=== PATIENT | male | born 1930 | race Caucasian/White ===

== ENCOUNTER → 2016-09-30 | Outpatient (REF) | payer MEDICARE, OTHER ==
[~2016-09-30] MED LIST: ACET-654 PO; ARIC10TA PO; ARIC5TAB PO; ARTI99.0 OU; ASPI81TA85 PO; AZIL1TAB PO; BIMA01SOL OU; BISA10SU4 PR; CARB25TA PO; CETI10TA PO; CIPR500T89 PO; CLAR1TAB2 PO; CRES20TA PO; FEXO180T58 PO; FINA5TAB2 PO; FLEEENE4 PR; FLOM5CAP PO; INDA125TA PO; ISOS30TA4 PO; JANU100T PO; LOSA100T36 PO; LOSA50TA20 PO; MACR100C3 PO; METF500T4 PO; MILKSUS PO; MULTCAP PO; MYCOSTATIN TOP; OMEP20CA3 PO; OMEP40CA2 PO; PEPT262S PO; PROC25SU24 PR; RANI150C PO; SENN-15 PO; SINE25TACR PO; TAMS0.4C2 PO; TYLE325T5 PO; VITA100072 PO; VITMTA PO; ZOFR4TAB3 PO
[2016-09-30 11:02] LABS: CREATININE FOR GFR 1.27 MG/DL (0.70-1.30); GLOMERULAR FILTRATION RATE 57.7 (>35); POTASSIUM SERUM 3.9 MEQ/L (3.5-5.1)
[2016-09-30 11:03] LABS: MEAN CORPUSCULAR HEMOGLOBIN 31.1 pg (27.0-33.0); MEAN CORPUSCULAR HGB CONC 34.1 g/dl (32.0-36.5); MEAN CORPUSCULAR VOLUME 91.2 fl (80.0-96.0); RED CELL DISTRIBUTION WIDTH 13.5 % (11.5-14.5); WHITE BLOOD COUNT 7.4 K/mm3 (4.0-10.0)
== END ==
PROVIDERS: ATTEND Internal Medicine
DX: I10 Essential (primary) hypertension (principal)

== ENCOUNTER → 2016-10-13 | Outpatient (REF) | payer MEDICARE, OTHER ==
[2016-10-13 12:54] LABS: ALBUMIN 3.7 GM/DL (3.2-5.2); ALBUMIN/GLOBULIN RATIO 1.32 (1.00-1.93); BILIRUBIN,DIRECT 0.2 MG/DL (0.0-0.2); BILIRUBIN,TOTAL 0.6 MG/DL (0.2-1.0); TOTAL PROTEIN 6.5 GM/DL (6.4-8.2)
== END ==
PROVIDERS: ATTEND Internal Medicine
DX: F03.90 Unspecified dementia, unspecified severity, without behavioral disturbance, psychotic disturbance, mood disturbance, and anxiety (principal)

== ENCOUNTER → 2016-10-28 | Outpatient (REF) | payer MEDICARE, OTHER | PROVIDERS: ATTEND Internal Medicine | DX: Z51.81 Encounter for therapeutic drug level monitoring (principal); Z79.899 Other long term (current) drug therapy ==

== ENCOUNTER → 2016-11-24 | Outpatient (REF) | payer MEDICARE, OTHER ==
[2016-11-24 10:23] LABS: ALBUMIN 3.6 GM/DL (3.2-5.2); ALBUMIN/GLOBULIN RATIO 1.29 (1.00-1.93); BILIRUBIN,DIRECT 0.2 MG/DL (0.0-0.2); BILIRUBIN,TOTAL 0.6 MG/DL (0.2-1.0); TOTAL PROTEIN 6.4 GM/DL (6.4-8.2)
== END ==
PROVIDERS: ATTEND Internal Medicine
DX: F03.91 Unspecified dementia, unspecified severity, with behavioral disturbance (principal)

== ENCOUNTER → 2016-12-01 | Outpatient (REF) | payer MEDICARE, OTHER | PROVIDERS: ATTEND Internal Medicine | DX: E11.9 Type 2 diabetes mellitus without complications (principal) ==

== ENCOUNTER → 2016-12-30 | Outpatient (REF) | payer MEDICARE, OTHER ==
[2016-12-30 11:10] LABS: MEAN CORPUSCULAR HEMOGLOBIN 31.1 pg (27.0-33.0); MEAN CORPUSCULAR HGB CONC 33.1 g/dl (32.0-36.5); MEAN CORPUSCULAR VOLUME 93.9 fl (80.0-96.0); RED CELL DISTRIBUTION WIDTH 13.3 % (11.5-14.5); WHITE BLOOD COUNT 5.4 K/mm3 (4.0-10.0)
[2016-12-30 11:25] LABS: ANION GAP 10 MEQ/L (8-16); BLOOD UREA NITROGEN 28 MG/DL (7-18); CALCIUM LEVEL 8.9 MG/DL (8.8-10.2); CARBON DIOXIDE LEVEL 25 MEQ/L (21-32); CHLORIDE LEVEL 106 MEQ/L (98-107); CREATININE FOR GFR 1.15 MG/DL (0.70-1.30); GLOMERULAR FILTRATION RATE > 60.0 (>35); GLUCOSE, FASTING 189 MG/DL (83-110); POTASSIUM SERUM 3.9 MEQ/L (3.5-5.1); SODIUM LEVEL 141 MEQ/L (136-145)
== END ==
PROVIDERS: ATTEND Internal Medicine
DX: I10 Essential (primary) hypertension (principal)

== ENCOUNTER → 2017-01-12 | Outpatient (REF) | payer MEDICARE, OTHER ==
[2017-01-12 12:50] LABS: ALBUMIN 3.4 GM/DL (3.2-5.2); ALBUMIN/GLOBULIN RATIO 1.13 (1.00-1.93); BILIRUBIN,DIRECT 0.2 MG/DL (0.0-0.2); BILIRUBIN,TOTAL 0.7 MG/DL (0.2-1.0); TOTAL PROTEIN 6.4 GM/DL (6.4-8.2)
== END ==
PROVIDERS: ATTEND Internal Medicine
DX: G20 Parkinson's disease (principal)

== ENCOUNTER 2017-01-31 12:15 | Observation (INO) | payer MEDICARE, OTHER ==
[~2017-01-31] VITALS: Ht 177.8 cm; Wt 84.5 kg
[~2017-01-31 12:15] MED LIST changes: -AMOX500C PO; -ENEM1ENE4 PR; -GLUCLIQ7 PO; -ISOS60TA2 PO; -LORA-376 PO; -METF500T PO; -MIRA33504 PO; -NITR0.4D6 TD; -NITR4TASL SL; -ROCE1INJ4 IM; -SENO8.6T10 PO; -[UNRECOGNIZED DRUG - CODE] PO
[2017-01-31] MEDS ORDERED: methylPREDNISolone INJ 125 MG/2 ML VIAL (J2930) IV ONE (12:30)
[2017-01-31] MEDS ORDERED: FUROSEMIDE 40 MG/4 ML VIAL (J1940) IV ONE (12:30)
[2017-01-31 12:57] LABS: MEAN CORPUSCULAR HEMOGLOBIN 32.1 pg (27.0-33.0); MEAN CORPUSCULAR HGB CONC 33.4 g/dl (32.0-36.5); MEAN CORPUSCULAR VOLUME 96.2 fl (80.0-96.0); PLATELET COUNT, AUTOMATED 100 k/mm3 (150-450); RED CELL DISTRIBUTION WIDTH 13.4 % (11.5-14.5); WHITE BLOOD COUNT 23.4 K/mm3 (4.0-10.0)
[2017-01-31 12:58] LABS: ABG BASE EXCESS -8.9 (-2.0-2.0); ABG STANDARD HCO3 17.2 MEQ/L (22.0-26.0)
[2017-01-31 13:01] LABS: ABG HCO3 16.8 MEQ/L (22.0-26.0); ABG PARTIAL PRESSURE CO2 35.8 mmHg (35.0-45.0); ABG PARTIAL PRESSURE O2 54.4 mmHg (75.0-100.0); ABG TOTAL CO2 17.9 MEQ/L (23.0-31.0); ABG pH (ARTERIAL) 7.289 UNITS (7.350-7.450)
[2017-01-31] MEDS: IPRATROPIUM 0.5MG/ALBUTEROL 2.5MG INH SOL UD 3ML (DUONEB)(J7620) NEB PRN ×3 (13:06→13:37)
[2017-01-31 13:15] LABS: CALCIUM LEVEL 8.3 MG/DL (8.8-10.2); CREATININE FOR GFR 2.28 MG/DL (0.70-1.30); GLOMERULAR FILTRATION RATE 29.3 (>35)
--- NOTE | 2017-01-31 13:16 | REP ---
Clinical: Dyspnea and cough. Comparison: 07/03/2016. Findings: Mediastinum and cardiac silhouette are stable. Diffuse chronic interstitial changes are appreciated and subtle superimposed perihilar infiltrates cannot be excluded. No definite effusion. No pneumothorax. Skeletal structures demonstrate osteopenia and degenerative changes. A ventriculoperitoneal shunt identified. Impression: Chronic stable changes. Subtle superimposed perihilar opacities suggested. Signed by Ori Richardson MD 01/31/2017 01:09 P
[2017-01-31] MEDS ORDERED: ACETAMINOPHEN 650 MG SUPP PR ONE (13:30)
[2017-01-31] MEDS ORDERED: ROCE1INJ4 IM (13:34)
[2017-01-31] MEDS ORDERED: ISOS60TA2 PO (13:34)
[2017-01-31] MEDS ORDERED: METF500T PO (13:34)
[2017-01-31] MEDS ORDERED: LORA-376 PO (13:34)
[2017-01-31] MEDS ORDERED: NITR0.4D6 TD (13:34)
[2017-01-31] MEDS ORDERED: ASPI81TA85 PO (13:34)
[2017-01-31] MEDS ORDERED: [UNRECOGNIZED DRUG - CODE] PO (13:34)
[2017-01-31 13:42] LABS: BANDS 7 % (< 11); BASOPHILS 1 % (0-4)
[2017-01-31] MEDS ORDERED: CEFEPIME HCL 2 GM in D5W MINI-BAG PLUS 50 ML IV ONE (14:30)
[2017-01-31] MEDS ORDERED: NS 1,000 ML IV ONE ×2 (14:30→15:00)
[2017-01-31] MEDS ORDERED: DEXTROSE 50% 50 ML SYRINGE IV PRN (15:00)
[2017-01-31] MEDS ORDERED: GLUCAGON FOR INJ 1 MG VIAL (J1610) SC PRN (15:00)
[2017-01-31] MEDS ORDERED: GLUCOSE 4 GM CHEW TABLET PO PRN (15:00)
[2017-01-31] MEDS ORDERED: NS 1,000 ML IV SCH (15:15)
[2017-01-31] MEDS ORDERED: MIRA33504 PO (15:15)
[2017-01-31] MEDS ORDERED: BISACODYL 10 MG SUPP PR PRN (15:15)
[2017-01-31] MEDS ORDERED: CARB25TA PO (15:15)
[2017-01-31] MEDS ORDERED: ENEM1ENE4 PR (15:15)
[2017-01-31] MEDS ORDERED: TYLE325T5 PO (15:15)
[2017-01-31] MEDS ORDERED: GLUCLIQ7 PO (15:15)
[2017-01-31] MEDS ORDERED: SENO8.6T10 PO (15:15)
[2017-01-31] MEDS ORDERED: MEROPENEM INJ 1 GM in D5W MINI-BAG PLUS 100 ML IV ONE (15:15)
[2017-01-31] MEDS ORDERED: ONDANSETRON 4MG/2ML VIAL (J2405) IV PRN (15:15)
[2017-01-31] MEDS ORDERED: NITR4TASL SL (15:15)
[2017-01-31] MEDS ORDERED: AMOX500C PO (15:16)
--- NOTE | 2017-01-31 15:38 | PHACANCOPD ---
PHARMACY VANCOMYCIN DOSING Pt Demographics Demographics Patient Age:86 , Weight: , Gender: male Adjusted Body Weight Date: 01/31/17, Adjusted Body Weight: [na] Kg Events Past 24 Hours Events Past 24 Hours: YES: Change in CrCl, Fever, Elevation in WBC, NO: Dialysis, Diuretic Therapy, Pending Diagnostics, Pending Procedures, Other Vancomycin Vancomycin indication: sepsis Vancomycin Target Ranges: 15-20 mcg/ml Vancomycin Load Y/N: Yes Load Dose Date Time Vancomycin Load Dose: 1000mg Date: 01/31/17 Time: 17:00 Vancomycin Dose Date: 01/31/17. Current Vancomycin Dose: [1g IV q24h @08] Intermittent Dosing?: No Labs Labs Item Value Date Time White Blood Count 23.4 K/mm3 H 01/31/17 1243 Lactic Acid Level 7.8 MMOL/L *H 01/31/17 1300 Creatinine 2.28 MG/DL H # 01/31/17 1243 Creatinine 1.45 MG/DL H 01/31/17 0325 White Blood Count 15.0 K/mm3 H 01/31/17 0325 Vital Signs Label Value Date Time Patient Temperature 102.1 degrees F 01/31/17 1440 Temperature Source Rectal 01/31/17 1440 Micro Microbiology 01/31/17 Blood Culture, Received Pending 01/31/17 Blood Culture, Received Pending 01/31/17 Gram Stain, Received Pending 01/31/17 Sputum Culture, Received Pending Creatinine Clearance Date:01/31/17. Creatinine Clearance: [24 ml/min]. Pending Labs vanco trough scheduled 02/02 @07:00 Assessment and Plan Maintaining Current Dose?: Yes Reason for dose change: No Dose Change Pharmacist Note Pharmacist Note Date: 01/31/17. Pharmacist note: pt is a [facility] resident who has been admitted for sepsis. He has been started on meropenem and vancomycin. He is in acute renal failure, baseline SCr ~1.1 mg/dl. He has a Hx of MRSA UTI (BRIEN = 0.5 clean catch; 50,000 CFU). He was last on vancomycin here in 2016. Blood and sputum cultures are pending. I have started him on vancomycin 1g this afternoon followed by 1g IV q24h to start tomorrow morning. We will continue to monitor, I have a trough scheduled for Wednesday before the 3rd dose. Corky Valente Pharm.D. January 31, 2017 15:38
[2017-01-31] MEDS ORDERED: FLEET ENEMA PR PRN (15:45)
[2017-01-31] MEDS: MORPHINE SULF IN 0.9% NACL 100 MG in APPROPRIATE DILUENT 1 EA IV SCH ×2 (15:52)
[2017-01-31 16:12] VITALS: BP 82/46
--- NOTE | 2017-01-31 16:53 | HPE ---
DATE OF ADMISSION: 01/31/2017 PRIMARY CARE PROVIDER: Dr. Caraballo. CHIEF COMPLAINT: Hypotension, shortness of breath, and cough. HISTORY OF PRESENT ILLNESS: This is an 86-year-old male patient with underlying medical history of advanced Parkinson's. History is severely limited. Patient currently nonverbal in severe respiratory distress. Underlying medical history of severe dementia, advanced Parkinson's, normal-pressure hydrocephalus with ventriculoperitoneal (SUPERVISOR HOT DIP PLATING) shunt, type 2 diabetes, hypertension, coronary arterial disease, prostate cancer, previous subdural hematoma, tonsillectomy, heart valve replacement questionable, and urinary bladder cancer. As of yesterday, the patient was having trouble breathing at the [facility], was coughing, placed on oxygen, given Rocephin. This morning the patient's symptoms progressively worsening, was hypotensive, saturation in the 70s and 80s, subsequently brought to the emergency room. In the emergency room, the patient was hypotensive with blood pressure in the 70s, 75/50s ,with lactic acidosis, hypoxia requiring 100% nonrebreather with saturation of 92 and tachycardia. Given two liters of fluids. Given one dose of meropenem. Medical Orders for Life-Sustaining Treatment (MOLST) form was reviewed with the family. The patient is DO NOT RESUSCITATE/DO NOT INTUBATE (DNR/DNI). Likely cause of the current episode is septic shock due to pneumonia. The case was discussed with family, the daughter Darshana Santo, and also son Je, in extensive detail over the phone. Does not want triple-lumen central line. Given the patient's overall functioning status, the family has elected to make the patient COMFORT MEASURES ONLY. Subsequently, the patient was placed on morphine drip and admitted to the hospital for management of the patient's symptoms of pain and dyspnea. ALLERGIES: No known drug allergies. PAST MEDICAL HISTORY: 1. Severe dementia. 2. Parkinson's disease. 3. Type 2 diabetes. 4. Normal-pressure hydrocephalus. 5. Hypertension. 6. Coronary arterial disease. 7. Subdural hematoma. 8. Tonsillectomy. 9. History of valvular heart disease. PAST SURGICAL HISTORY: 1. Tonsillectomy. 2. SUPERVISOR HOT DIP PLATING shunt. 3. Heart valve replacement. 4. Bladder tumor removal. FAMILY HISTORY: Unable to obtain given the patient's mental status. SOCIAL HISTORY: From previous medical record, the patient does not smoke. Lives at a retirement. No alcohol abuse. No illicit drugs. DNR/DNI. Healthcare proxy is the daughter Darshana. REVIEW OF SYSTEMS: Unable to obtain. OUTPATIENT MEDICATIONS: - acetaminophen 650 mg by mouth every four hours as needed - amoxicillin 2000 mg by mouth - artificial tears four times a day - aspirin 81 mg by mouth daily - Lumigan eye drops at bedtime - Dulcolax rectal suppository 10 mg as needed daily - carbidopa levadopa 25/100 by mouth four times a day - Rocephin 1 gram intramuscular (IM) daily - vitamin B12 1000 mcg by mouth daily - Senokot-S two tablets by mouth twice a day - Enema as needed daily - finasteride 5 mg by mouth daily - Glucerna liquid by mouth daily - isosorbide mononitrate 60 mg by mouth daily - lorazepam 0.5 mg by mouth twice a day as needed - losartan 50 mg by mouth daily - metformin 500 mg by mouth every evening - milk of magnesia by mouth daily as needed - nitroglycerin sublingual 0.4 mg as needed - Nuplazid 34 mg by mouth every evening - MiraLax by mouth every evening - ranitidine 150 mg by mouth twice a day - Januvia 100 mg by mouth daily - Flomax 0.4 mg by mouth daily PHYSICAL EXAMINATION: VITAL SIGNS: Temperature 102.1, heart rate 100, blood pressure 87/43, pulse oximetry 97% on 100% nonrebreather. GENERAL: The patient tachypneic into 30s. Hypotensive. In significant respiratory distress. HEENT: Pale. Normocephalic, atraumatic. PULMONARY: Bilateral crackles, tachypneic. HEART: Regular tachycardia. Systolic murmur noticed 3/6. ABDOMEN: Soft, nontender. Hypoactive bowel sounds. EXTREMITIES: No edema bilateral lower extremities. Cool and clammy. NECK: No jugular venous distention (JVD). ELECTROCARDIOGRAM (EKG): Sinus tachycardia at 103. Left bundle branch block that is chronic. LABORATORY DATA: AB.28, 35.8, 54.4, 16.8. WBC 23.4, 14.7, 44.2, platelets 100. Chemistry: Sodium 137, potassium 5, chloride 103, bicarbonate 19, BUN 42, creatinine 2.28. Lactic acid 7.8. Troponin 0.77. BNP 1590. IMAGING: X-ray shows chronic changes with bi-hilar opacity. 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 1. Septic shock secondary to healthcare-acquired pneumonia. Initially given meropenem and two liters of intravenous (IV) fluid. 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 X-rays appreciated. Scopolamine. Ativan. Morphine. 2. Metabolic acidosis secondary to septic shock. Refer to above. 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 3. Hypoxic respiratory failure probably secondary to healthcare-acquired pneumonia, with also significant aspiration, possibly aspiration pneumonia as well. Patient currently nothing by mouth. Comfort measures only. Antibiotics initially given. Morphine for air hunger. Ativan for anxiety. 4. Type 2 diabetes. 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 5. Hypertension. Holding all blood pressure medications. Patient currently in septic shock. 6. Coronary arterial disease. The patient currently nothing by mouth with troponin elevation secondary to septic shock. 7. Parkinson's disease and severe dementia. Given the patient's mental status and severe aspiration risk, the patient is currently nothing by mouth, unable to take oral medications, and the patient is currently comfort measures only. Does not want tube feeding according to the MOLST form. 8. History of subdural hematoma and normal-pressure hydrocephalus. The patient currently comfort measures only. Will not pursue any further testing. 9. Type 2 diabetes. Patient currently nothing by mouth. 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 10. Severe dementia. Supportive care. 11. Deep venous thrombosis (DVT) prophylaxis. Venodyne sequential compression device. DISPOSITION: Patient currently comfort measures only. Admitted to the floor for symptom control, requiring morphine IV. ADVANCE CARE PLANNING TIME: About 40 minutes. Telephone conversation was held multiple times with patient's daughter and healthcare proxy, Darshana Santo, and also the patient's son who lives in [facility], and it was agreed that given the patient's multiple comorbidities and given patient does not want to be intubated and does not want any aggressive treatment, the patient will most likely benefit from comfort measures only and admitted to the hospital for further control of symptoms. MOLST form was done. Patient was made comfort measures only.
[2017-01-31] MEDS: PANTOPRAZOLE 40MG INJ (PROTONIX) (C9113) IV SCH (17:00)
[2017-01-31] MEDS ORDERED: VANCOMYCIN HCL 1,000 MG, VIAL MATE ADAPTER 1 EACH in D5W 250 ML IV ONE (17:00)
[2017-01-31] MEDS: SCOPOLAMINE 1.5 MG TRANSDERMAL TD PRN ×2 (17:28→17:32)
[2017-01-31] MEDS ORDERED: HumaLOG INSULIN (NovoLOG) PER UNIT SC SCH (18:00)
[2017-01-31] MEDS ORDERED: HEPARIN SOD (PORCINE) 5000 UNITS/ML VIAL SC SCH (22:00)
[2017-02-01] MEDS: NS 1,000 ML IV SCH (02:30)
[2017-02-01] MEDS ORDERED: MEROPENEM INJ 1 GM in D5W MINI-BAG PLUS 100 ML IV SCH (04:00)
[2017-02-01] MEDS ORDERED: VANCOMYCIN HCL 1,000 MG, VIAL MATE ADAPTER 1 EACH in D5W 250 ML IV SCH (08:00)
[2017-02-01] MEDS ORDERED: ASPIRIN 300 MG SUPP PR SCH (09:00)
[2017-02-01] MEDS: LORazepam 2 MG/ML VIAL (J2060) IV PRN ×3 (11:30→22:21)
--- NOTE | 2017-02-01 12:49 | IPNPDOC ---
Subjective Date Seen The patient was seen on 02/01/17. Subjective Chief Complaint/HPI The patient is a 86-year-old male admitted with a reason for visit of Fever/ Sob. Events since last encounter Patient comfortable, not taking po General: Reports: ROS Unobtainable Objective Physical Examination General Exam: Positive: No Acute Distress, Negative: Alert Assessment /Plan Problems (1) Septic shock Status: Acute Problem Text: Patient with septic shock most likely from health care associated pneumonia, advanced dementia correction resident Family pursuing comfort care based on patient's best known interests/intentions I discussed with family at bedside Patient appears comfortable On morphine drip unclear whether or not this can be adequately be handled in his previous living arrangement- as they sent him to ED (2) Parkinson's disease Status: Chronic (3) DNR (do not resuscitate) Status: Acute (4) DNI (do not intubate) Status: Acute (5) Parkinson's disease dementia Status: Chronic (6) Lactic acidosis Status: Chronic Plan/VTE VTE Prophylaxis Ordered?: No VTE Exclusion Mechanical Proph: Absent Response to Tx VTE Exclusion Pharmacological: At Low Risk for VTE Plan/Urinary Catheter Reason for insertion/continuin: Critical Pt monitoring VS, I&O, 24H, [facility] Vital Signs/I&O Vital Signs Date Time Temp Pulse Resp B/P (MAP) Pulse Ox O2 Delivery O2 Flow Rate FiO2 01/31/17 22:00 Non-Rebreather 15.0 01/31/17 16:12 101.3 86 28 82/46 (58) 95 I&O- Last 24 Hours up to 6 AM 02/01/17 06:00 Intake Total 2000 ml Output Total 0 ml Balance 2000 ml Laboratory Data 24H LABS Laboratory Tests 2 01/31/17 12:44: Blood Gas Bicarbonate Standard 17.2L, Arterial Blood pH 7.289L, Arterial Blood Partial Pressure CO2 35.8, Arterial Blood Partial Pressure O2 54.4L, Arterial Blood Total CO2 17.9L, Arterial Blood HCO3 16.8L, Arterial Blood Base Excess - 8.9L, Arterial Blood Oxygen Saturation 86.7L 01/31/17 13:00: Lactic Acid Level 7.8*H Microbiology Microbiology 01/31/17 Blood Culture, Received Pending 01/31/17 Blood Culture, Received Pending 01/31/17 Gram Stain - Final, Resulted 01/31/17 Sputum Culture, Resulted Pending FLINT,NILESH. MD February 01, 2017 12:49
[2017-02-01] MEDS ORDERED: ACETAMINOPHEN 650 MG SUPP As Ordered ONE (17:59)
[2017-02-01] MEDS ORDERED: ACETAMINOPHEN 325 MG SUPP PR ONE (18:00)
[2017-02-01] MEDS ORDERED: ACETAMINOPHEN 650 MG SUPP PR ONE (18:00)
[2017-02-01] MEDS: PANTOPRAZOLE 40MG INJ (PROTONIX) (C9113) IV SCH (18:00)
[2017-02-01] MEDS: MORPHINE 2 MG/ML 1ML SYRINGE IV PRN ×4 (18:04→23:01)
[2017-02-01] MEDS: MORPHINE SULF IN 0.9% NACL 100 MG in APPROPRIATE DILUENT 1 EA IV SCH ×2 (18:16)
[2017-02-02] MEDS ORDERED: ACETAMINOPHEN 650 MG SUPP PR ONE (00:30)
[2017-02-02] MEDS: MORPHINE SULF IN 0.9% NACL 100 MG in APPROPRIATE DILUENT 1 EA IV SCH ×2 (01:03)
[2017-02-02] MEDS: NS 1,000 ML IV SCH (02:30)
[2017-02-02] MEDS: LORazepam 2 MG/ML VIAL (J2060) IV PRN (03:25)
[2017-02-02] MEDS: MORPHINE 2 MG/ML 1ML SYRINGE IV PRN (03:25)
--- NOTE | 2017-02-02 06:29 | ECGEPIP ---
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
== END 2017-02-02 05:45 | disposition expired ==
LOC: EDBD 12:15 → M ED 12:54 → INTOOBSV 15:24 → M ED INP 15:24 → M MSPAV 17:13
PROVIDERS: ADMIT Internal Medicine; ATTEND Internal Medicine
DX: J18.9 Pneumonia, unspecified organism (principal); R65.21 Severe sepsis with septic shock; E87.2 Acidosis; J96.01 Acute respiratory failure with hypoxia; R50.9 Fever, unspecified; G20 Parkinson's disease; I95.9 Hypotension, unspecified; F03.90 Unspecified dementia, unspecified severity, without behavioral disturbance, psychotic disturbance, mood disturbance, and anxiety; E11.9 Type 2 diabetes mellitus without complications; I10 Essential (primary) hypertension; I25.10 Atherosclerotic heart disease of native coronary artery without angina pectoris; Z79.899 Other long term (current) drug therapy; C61 Malignant neoplasm of prostate; Z79.82 Long term (current) use of aspirin; R11.0 Nausea
CPT/HCPCS: 36600; 71010; 80048; 82550; 82553; 82803; 83605; 83880; 84484; 85025; 85027; 87040; 87070; 87077; 87186; 87205; 93005; 93041; 94640; 96361; 96374; 96375; 96376; 99285; G0378; J0692; J1940; J2060; J2185; J2930

== ENCOUNTER → 2017-01-31 | Outpatient (REF) | payer MEDICARE, OTHER ==
[~2017-01-31] MED LIST changes: +AMOX500C PO; +ENEM1ENE4 PR; +GLUCLIQ7 PO; +ISOS60TA2 PO; +LORA-376 PO; +METF500T PO; +MIRA33504 PO; +NITR0.4D6 TD; +NITR4TASL SL; +ROCE1INJ4 IM; +SENO8.6T10 PO; +[UNRECOGNIZED DRUG - CODE] PO
[2017-01-31 07:40] LABS: CALCIUM LEVEL 8.8 MG/DL (8.8-10.2); CREATININE FOR GFR 1.45 MG/DL (0.70-1.30); GLOMERULAR FILTRATION RATE 49.4 (>35); POTASSIUM SERUM 4.3 MEQ/L (3.5-5.1)
[2017-01-31 07:42] LABS: MEAN CORPUSCULAR HEMOGLOBIN 31.5 pg (27.0-33.0); MEAN CORPUSCULAR HGB CONC 33.4 g/dl (32.0-36.5); MEAN CORPUSCULAR VOLUME 94.5 fl (80.0-96.0); RED CELL DISTRIBUTION WIDTH 13.3 % (11.5-14.5)
== END ==
PROVIDERS: ATTEND Internal Medicine
DX: R11.0 Nausea (principal); G20 Parkinson's disease